=== PATIENT | female | born 1985 | race Caucasian/White ===

== ENCOUNTER 2016-12-30 02:03 | Emergency (ER) | payer OTHER ==
[~2016-12-30] VITALS: Ht 162.5 cm; Wt 65.8 kg
[~2016-12-30 02:03] MED LIST: 'PARAFON FORTE500 M1 PO; ACCUNEB 0.1.25 MG/3 INH; ALBUTEROL2.5 MG/0.5 INH; ANAPROX DS550 MG PO; ATIVAN1 MG PO; BUSPAR5 MG PO; CLARITIN10 MG PO; DELTASONE20 MG PO; DOXYCYCLINE100 M2 PO; DULERA100 INH; DUONEB 3 MG/3 ML3 M1 INH; FLONASE ALLERG9.9 ML NAS; HYDROCODONE BIT1 T11 PO; HYDROXYZINE PAM25 M1 PO; HYDROXYZINE PAM50 MG PO; KROGER NIC21 MG/24 H T; LEVAQUIN750 M1 PO; LEVAQUIN750 MG PO; LEVOFLOXACIN500 MG PO; MEDROL DOSEPAK4 MG PO; MOTRIN800 MG PO; MUSCLE RELAXANT; NAPROSYN500 MG PO; NICOTINE T21 MG/24 H T; ONDANSETRON HYDR4 M1 PO; OPANA ER30 MG PO; OXYCODONE30 MG PO; PERCOCET 325 MG1 TA2 PO; PREDNISONE10 MG PO; PREDNISONE20 MG PO; PREDNISONE50 MG PO; PROVENTIL0.09 MG/AC IH; RESTORIL30 MG PO; ROBAXIN750 MG PO; ROBITUSSIN AC 110 ML PO; ROBITUSSIN DM 105 ML PO; ROBITUSSIN-AC 160 ML PO; ROBITUSSIN5 ML PO; SINEMET 25-100M1 TAB PO; SINGULAIR10 MG PO; SUDAFED60 MG PO; THERA1 TAB PO; VENTOLIN 02.5 MG/3 M INH; VIBRAMYCIN100 MG PO; VICODIN 5/500 505 MG PO; VITAMIN B-11 TAB PO; VIVITROL380 MG IM; Vicodin 5/500 505 MG PO; ZITHROMAX Z PA250 MG PO; ZITHROMAX250 MG PO; ZOLOFT100 MG PO; ZYRTEC10 M3 PO
[2016-12-30] MEDS ORDERED: BUSPAR5 MG PO (02:10)
[2016-12-30] MEDS ORDERED: ZOLOFT100 MG PO (02:10)
[2016-12-30] MEDS ORDERED: PENICILLIN VK500 MG PO (02:22)
[2016-12-30] MEDS ORDERED: NORCO 5-325 TA1 EACH PO (02:22)
== END 2016-12-30 02:50 | disposition home or self-care (01) ==
LOC: ED 02:03
DX: K04.7 Periapical abscess without sinus (principal); H92.01 Otalgia, right ear; K13.79 Other lesions of oral mucosa; J45.909 Unspecified asthma, uncomplicated; F17.200 Nicotine dependence, unspecified, uncomplicated; Z79.899 Other long term (current) drug therapy

== ENCOUNTER 2017-03-03 13:31 | Emergency (ER) | payer OTHER ==
[~2017-03-03] VITALS: Ht 162.5 cm; Wt 65.8 kg
[~2017-03-03 13:31] MED LIST changes: +NORCO 5-325 TA1 EACH PO; +PENICILLIN VK500 MG PO
[2017-03-03 14:09] LABS: BILIRUBIN NEGATIVE (NEGATIVE); BLOOD 2+ (NEGATIVE); CLARITY SL CLOUDY (CLEAR); COLOR YELLOW (YELLOW); GLUCOSE NEGATIVE (NEGATIVE); KETONE NEGATIVE (NEGATIVE); LEUKO ESTERASE 2+ (NEGATIVE); NITRITE POSITIVE (NEGATIVE); PH 6.5 (5.0-9.0); UROBILINOGEN 0.2 E.U./dl (0.2-1.0)
[2017-03-03 14:20] LABS: HEMATOCRIT 41.8 % (37.0-47.0); HEMOGLOBIN 13.5 g/dl (12.0-16.0); MEAN CORPUSCULAR HGB 28.4 pg (27.0-31.0); MEAN CORPUSCULAR HGB CONC 32.3 g/dl (33.0-37.0); MEAN PLATELET VOLUME 9.7 fl (9.6-12.3); PLATELET COUNT AUTOMATED 247 10*3/uL (130-400); RED BLOOD COUNT 4.75 10*6/uL (4.10-5.10); WHITE BLOOD COUNT 14.9 10*3/uL (4.8-10.8)
[2017-03-03 14:24] LABS: BACTERIA 3+; EPITHELIAL CELLS 16-20; WBC 21-30 wbc/hpf (0-5)
[2017-03-03 14:36] LABS: ALBUMIN 3.4 gm/dl (3.1-4.5); ALKALINE PHOSPHATASE 50 U/L (45-117); BUN 11 mg/dl (7-24); CHLORIDE 107 mmol/L (98-107); CREATININE 0.87 mg/dL (0.55-1.02); LIPASE 88 U/L (73-393); POTASSIUM 3.9 mmol/L (3.5-5.1); SGOT/AST 10 IU/L (3-35); SGPT/ALT 12 U/L (12-78); SODIUM 139 mmol/L (136-145); TOTAL PROTEIN 7.4 gm/dL (6.4-8.2)
[2017-03-03 14:57] LABS: BASOPHILS 1 % (0-1); PLATELET SUFFICIENCY NORMAL (NORMAL); TOTAL CELLS COUNTED 100 #CELLS
[2017-03-03] MEDS ORDERED: CIPRO500 MG PO (15:24)
[2017-03-03] MEDS ORDERED: Zofran4 MG PO (15:24)
== END 2017-03-03 16:34 | disposition home or self-care (01) ==
LOC: ED 13:31
PROVIDERS: Emergency Medicine
DX: N12 Tubulo-interstitial nephritis, not specified as acute or chronic (principal); R51 Headache; J45.909 Unspecified asthma, uncomplicated; F17.200 Nicotine dependence, unspecified, uncomplicated; Z79.899 Other long term (current) drug therapy

== ENCOUNTER 2017-04-09 17:27 | Emergency (ER) | payer OTHER ==
[~2017-04-09] VITALS: Ht 162.5 cm; Wt 65.8 kg
[~2017-04-09 17:27] MED LIST changes: +CIPRO500 MG PO; +Zofran4 MG PO
[2017-04-09] MEDS ORDERED: ROBITUSSIN DM 105 ML PO (19:31)
[2017-04-09] MEDS ORDERED: PREDNISONE20 M1 PO ×2 (19:31→19:32)
== END 2017-04-09 19:36 | disposition home or self-care (01) ==
LOC: ED 17:27
DX: J45.901 Unspecified asthma with (acute) exacerbation (principal); F17.200 Nicotine dependence, unspecified, uncomplicated; Z87.01 Personal history of pneumonia (recurrent); Z79.899 Other long term (current) drug therapy

== ENCOUNTER 2018-06-12 19:03 | Emergency (ER) | payer BC ==
[~2018-06-12] VITALS: Ht 162.5 cm; Wt 62.6 kg
[~2018-06-12 19:03] MED LIST changes: +LEVAQUIN500 M2 PO; +NICOTINE PATCH1 EAC2 TD; +PREDNISONE20 M1 PO
[2018-06-12 19:30] LABS: BILIRUBIN NEGATIVE (NEGATIVE); BLOOD TRACE-LYSED (NEGATIVE); CLARITY CLEAR (CLEAR); COLOR YELLOW (YELLOW); GLUCOSE NEGATIVE (NEGATIVE); KETONE NEGATIVE (NEGATIVE); LEUKO ESTERASE NEGATIVE (NEGATIVE); NITRITE NEGATIVE (NEGATIVE); SPECIFIC GRAVITY 1.015 (1.005-1.030); UROBILINOGEN 0.2 E.U./dl (0.2-1.0)
[2018-06-12 19:50] LABS: BASO # 0.1 10*3/uL (0.0-0.1); BASO % 0.5 % (0.0-1.0); EOS # 0.7 10*3/uL (0.0-0.4); EOS % 4.6 % (1.0-4.0); HEMATOCRIT 38.9 % (37.0-47.0); HEMOGLOBIN 12.9 g/dl (12.0-16.0); LYMPH # 3.9 10*3/uL (1.3-4.4); LYMPH % 27.4 % (27.0-41.0); MEAN CELL VOLUME 88.8 fl (81.0-99.0); MEAN CORPUSCULAR HGB 29.5 pg (27.0-31.0); MEAN CORPUSCULAR HGB CONC 33.2 g/dl (33.0-37.0); MEAN PLATELET VOLUME 9.6 fl (9.6-12.3); MONO # 1.1 10*3/uL (0.1-1.0); MONO % 7.4 % (3.0-9.0); NEUT # 8.5 10*3/uL (2.3-7.9); NEUT % 59.8 % (47.0-73.0); PLATELET COUNT AUTOMATED 279 10*3/uL (130-400); RED BLOOD COUNT 4.38 10*6/uL (4.10-5.10); RED CELL DISTRI WIDTH 13.2 % (0-14.5); WHITE BLOOD COUNT 14.2 10*3/uL (4.8-10.8)
[2018-06-12 19:51] LABS: BACTERIA TRACE; RBC 0-2 rbc/hpf (0-2); WBC 0-2 wbc/hpf (0-5)
[2018-06-12 20:04] LABS: ALBUMIN 3.5 gm/dl (3.1-4.5); ALKALINE PHOSPHATASE 40 U/L (45-117); BUN 12 mg/dl (7-24); CHLORIDE 109 mmol/L (98-107); CREATININE 0.65 mg/dL (0.55-1.02); LIPASE 122 U/L (73-393); POTASSIUM 3.7 mmol/L (3.5-5.1); SGOT/AST 11 IU/L (3-35); SGPT/ALT 16 U/L (12-78); SODIUM 141 mmol/L (136-145)
== END 2018-06-12 21:47 | disposition home or self-care (01) ==
LOC: ED 19:03
PROVIDERS: Nurse Practitioner Family
DX: O26.891 Other specified pregnancy related conditions, first trimester (principal); R10.32 Left lower quadrant pain; J45.909 Unspecified asthma, uncomplicated; Z79.899 Other long term (current) drug therapy; Z87.891 Personal history of nicotine dependence; Z3A.01 Less than 8 weeks gestation of pregnancy

== ENCOUNTER 2018-09-21 17:06 | Emergency (ER) | payer BC ==
[~2018-09-21] VITALS: Ht 162.5 cm; Wt 61.7 kg
[2018-09-21 17:38] LABS: BASO % 0.3 % (0.0-1.0); EOS # 0.4 10*3/uL (0.0-0.4); EOS % 2.3 % (1.0-4.0); HEMATOCRIT 34.7 % (37.0-47.0); HEMOGLOBIN 11.7 g/dl (12.0-16.0); LYMPH # 2.9 10*3/uL (1.3-4.4); MEAN CELL VOLUME 91.1 fl (81.0-99.0); MEAN CORPUSCULAR HGB 30.7 pg (27.0-31.0); MEAN CORPUSCULAR HGB CONC 33.7 g/dl (33.0-37.0); MEAN PLATELET VOLUME 9.9 fl (9.6-12.3); MONO # 1.1 10*3/uL (0.1-1.0); MONO % 6.8 % (3.0-9.0); NEUT # 11.4 10*3/uL (2.3-7.9); NEUT % 71.2 % (47.0-73.0); PLATELET COUNT AUTOMATED 279 10*3/uL (130-400); RED BLOOD COUNT 3.81 10*6/uL (4.10-5.10)
[2018-09-21 17:53] LABS: ABG HCO3 18.5 mmol/l (22-26); ABG O2 SATURATION 98.3 % (95-97); ARTERIAL BLOOD GAS PCO2 26.2 mmHg (35-45); ARTERIAL BLOOD GAS PH 7.46 (7.35-7.45); ARTERIAL BLOOD GAS PO2 82.1 mmHg (80-90)
[2018-09-21 18:07] LABS: ALBUMIN 3.1 gm/dl (3.1-4.5); ALKALINE PHOSPHATASE 47 U/L (45-117); BUN 7 mg/dl (7-24); CHLORIDE 109 mmol/L (98-107); CREATININE 0.76 mg/dL (0.55-1.02); POTASSIUM 3.5 mmol/L (3.5-5.1); SGOT/AST 10 IU/L (3-35); SGPT/ALT 27 U/L (12-78); SODIUM 140 mmol/L (136-145); TOTAL PROTEIN 7.1 gm/dL (6.4-8.2)
[2018-09-21] MEDS ORDERED: DELTASONE20 M1 PO (18:30)
[2018-09-21] MEDS ORDERED: PROVENTIL HFA6.7 GM INH (18:30)
[2018-09-21] MEDS ORDERED: Ipratropium Brom3 ML INH (18:30)
== END 2018-09-21 18:45 | disposition home or self-care (01) ==
LOC: ED 17:06
PROVIDERS: Emergency Medicine
DX: O99.512 Diseases of the respiratory system complicating pregnancy, second trimester (principal); J45.901 Unspecified asthma with (acute) exacerbation; O99.332 Smoking (tobacco) complicating pregnancy, second trimester; Z79.2 Long term (current) use of antibiotics; Z79.899 Other long term (current) drug therapy; Z3A.18 18 weeks gestation of pregnancy

== ENCOUNTER 2019-04-09 18:22 | Emergency (ER) | payer BC ==
[~2019-04-09] VITALS: Ht 162.5 cm; Wt 68.5 kg
[~2019-04-09 18:22] MED LIST changes: +DELTASONE20 M1 PO; +Ipratropium Brom3 ML INH; +PROVENTIL HFA6.7 GM INH
[2019-04-09 18:52] LABS: BASO # 0.1 10*3/uL (0.0-0.1); BASO % 0.5 % (0.0-1.0); EOS # 0.3 10*3/uL (0.0-0.4); EOS % 2.5 % (1.0-4.0); HEMATOCRIT 39.1 % (37.0-47.0); LYMPH # 3.3 10*3/uL (1.3-4.4); LYMPH % 25.3 % (27.0-41.0); MEAN CELL VOLUME 89.5 fl (81.0-99.0); MEAN CORPUSCULAR HGB 29.7 pg (27.0-31.0); MEAN CORPUSCULAR HGB CONC 33.2 g/dl (33.0-37.0); MEAN PLATELET VOLUME 10.3 fl (9.6-12.3); MONO # 0.8 10*3/uL (0.1-1.0); MONO % 6.3 % (3.0-9.0); NEUT # 8.5 10*3/uL (2.3-7.9); NEUT % 64.9 % (47.0-73.0); PLATELET COUNT AUTOMATED 240 10*3/uL (130-400); RED BLOOD COUNT 4.37 10*6/uL (4.10-5.10); WHITE BLOOD COUNT 13.1 10*3/uL (4.8-10.8)
[2019-04-09 19:08] LABS: ACT PARTIAL THROMBO TIME 28.4 SECONDS (20.0-32.1); INTERNATIONAL NORM RATIO 0.9 (2.0-3.5)
[2019-04-09 19:09] LABS: ALBUMIN 3.5 gm/dl (3.1-4.5); ALKALINE PHOSPHATASE 62 U/L (45-117); BUN 13 mg/dl (7-24); CHLORIDE 110 mmol/L (98-107); CREATININE 0.77 mg/dL (0.55-1.02); POTASSIUM 3.5 mmol/L (3.5-5.1); SGOT/AST 13 IU/L (3-35); SGPT/ALT 31 U/L (12-78); SODIUM 139 mmol/L (136-145)
[2019-04-09 19:16] LABS: TROPONIN I < 0.015 ng/ml (<0.045)
[2019-04-09] MEDS ORDERED: ZITHROMAX250 MG PO (20:27)
[2019-04-09] MEDS ORDERED: PREDNISONE20 M1 PO (20:27)
== END 2019-04-09 20:53 | disposition home or self-care (01) ==
LOC: ED 18:22
PROVIDERS: Emergency Medicine
DX: J45.901 Unspecified asthma with (acute) exacerbation (principal); R19.7 Diarrhea, unspecified; F17.200 Nicotine dependence, unspecified, uncomplicated

== ENCOUNTER 2019-04-11 16:35 | Inpatient (IN) | payer BC ==
[~2019-04-11] VITALS: Ht 162.6 cm; Wt 70.4 kg
[2019-04-11 16:36] VITALS: BP 125/80
[2019-04-11 17:08] LABS: BASO % 0.2 % (0.0-1.0); EOS # 0.3 10*3/uL (0.0-0.4); EOS % 1.2 % (1.0-4.0); HEMATOCRIT 39.6 % (37.0-47.0); HEMOGLOBIN 12.8 g/dl (12.0-16.0); LYMPH # 1.6 10*3/uL (1.3-4.4); LYMPH % 8.1 % (27.0-41.0); MEAN CELL VOLUME 91.5 fl (81.0-99.0); MEAN CORPUSCULAR HGB 29.6 pg (27.0-31.0); MEAN CORPUSCULAR HGB CONC 32.3 g/dl (33.0-37.0); MEAN PLATELET VOLUME 10.5 fl (9.6-12.3); MONO # 1.5 10*3/uL (0.1-1.0); MONO % 7.7 % (3.0-9.0); NEUT # 16.3 10*3/uL (2.3-7.9); NEUT % 81.6 % (47.0-73.0); PLATELET COUNT AUTOMATED 255 10*3/uL (130-400); RED BLOOD COUNT 4.33 10*6/uL (4.10-5.10); RED CELL DISTRI WIDTH 13.3 % (0-14.5)
[2019-04-11 17:18] LABS: ACT PARTIAL THROMBO TIME 24.5 SECONDS (20.0-32.1); INTERNATIONAL NORM RATIO 0.9 (2.0-3.5)
[2019-04-11 17:23] LABS: ALBUMIN 3.4 gm/dl (3.1-4.5); ALKALINE PHOSPHATASE 66 U/L (45-117); BUN 11 mg/dl (7-24); CHLORIDE 112 mmol/L (98-107); CREATININE 0.65 mg/dL (0.55-1.02); LIPASE 76 U/L (73-393); POTASSIUM 3.7 mmol/L (3.5-5.1); SGOT/AST 15 IU/L (3-35); SGPT/ALT 37 U/L (12-78); SODIUM 141 mmol/L (136-145); TOTAL PROTEIN 7.2 gm/dL (6.4-8.2)
[2019-04-11 17:24] LABS: TROPONIN I < 0.015 ng/ml (<0.045)
[2019-04-11 17:52] LABS: BILIRUBIN NEGATIVE (NEGATIVE); BLOOD TRACE-INTACT (NEGATIVE); CLARITY CLEAR (CLEAR); COLOR YELLOW (YELLOW); GLUCOSE NEGATIVE (NEGATIVE); KETONE NEGATIVE (NEGATIVE); LEUKO ESTERASE NEGATIVE (NEGATIVE); NITRITE NEGATIVE (NEGATIVE); PH 6.5 (5.0-9.0); UROBILINOGEN 0.2 E.U./dl (0.2-1.0)
[2019-04-11 18:00] LABS: BACTERIA 1+; EPITHELIAL CELLS 16-20; WBC 0-2 wbc/hpf (0-5)
[2019-04-11 18:15] VITALS: BP 118/78
--- NOTE | 2019-04-11 18:16 | NUR ---
PT STATES SHE IS FEELING MUCH BETTER AFTER HER , MEDICATION AND BREATHING TX, POX 97% 2L NC.
--- NOTE | 2019-04-11 19:23 | NUR ---
PT NOW TO CT.
[2019-04-11 19:48] VITALS: BP 136/84
[2019-04-11 22:31] VITALS: BP 120/69
[2019-04-11 22:51] VITALS: BP 119/57
--- NOTE | 2019-04-11 22:51 | NUR ---
A 33, admitted to 4E, under the services of JENNIFER Amaya DO with a diagnosis of DYSPNEA, SEPSIS, PNEUMONIA. Chief complaint is ASTHMA. Patient arrived via stretcher from ER. Initial assessment completed. Vital signs taken and recorded. Dr. Gonzales notified of admission to the unit. See assessment for past medical history, medications and allergies. Patient oriented to unit. [facility] 4E Clothing/patient valuable form completed.
[2019-04-11] MEDS ORDERED: SYMB80 INH (23:12)
[2019-04-11] MEDS ORDERED: ZOLOFT100 MG PO (23:15)
--- NOTE | 2019-04-11 23:30 | NUR ---
PATIENT GIVEN PRN TYLENOL AND TESSALON PEARLS FOR DISCOMFORT & COUGH. WILL MONITOR FOR EFFECTIVENESS.
--- NOTE | 2019-04-11 23:36 | NUR ---
NOTIFIED DR. KAM PATIENT ARRIVED ON FLOOR AND THAT THE MEDICATION LIST WAS UP TO DATE PER PATIENT.
--- NOTE | 2019-04-12 00:14 | NUR ---
PRN TYLENOL AND TESSALON PEARLS EFFECTIVE PER PATIENT.
--- NOTE | 2019-04-12 01:13 | NUR ---
24 HR chart check completed.
--- NOTE | 2019-04-12 06:04 | NUR ---
PT INSTRUCTED ON FV USE. PT DISPLAYS PROPER USE/TECHNIQUE WITH DEVICE. APPEARS TO BE COMPLIANT. NO DISTRESS OR SOB NOTED AT THIS TIME.
[2019-04-12 06:10] LABS: HEMATOCRIT 40.3 % (37.0-47.0); HEMOGLOBIN 12.9 g/dl (12.0-16.0); MEAN CELL VOLUME 91.2 fl (81.0-99.0); MEAN CORPUSCULAR HGB 29.2 pg (27.0-31.0); MEAN PLATELET VOLUME 10.5 fl (9.6-12.3); PLATELET COUNT AUTOMATED 250 10*3/uL (130-400); RED BLOOD COUNT 4.42 10*6/uL (4.10-5.10); RED CELL DISTRI WIDTH 13.2 % (0-14.5); WHITE BLOOD COUNT 17.8 10*3/uL (4.8-10.8)
[2019-04-12 06:25] LABS: BUN 9 mg/dl (7-24); CHLORIDE 110 mmol/L (98-107); CHOLESTEROL 279 mg/dL (<200); HDL CHOLESTEROL 42 mg/dl (40-60); LDL CHOLESTEROL 198 mg/dL (9-159); PHOSPHOROUS 3.8 mg/dL (2.5-4.9); SODIUM 141 mmol/L (136-145); TRIGLYCERIDES 196 mg/dl (<150); VLDL CHOLESTEROL 39 mg/dL (6-40)
[2019-04-12 06:40] LABS: PLATELET SUFFICIENCY NORMAL (NORMAL); TOTAL CELLS COUNTED 100 #CELLS
[2019-04-12 07:31] LABS: VITAMIN D, 25-HYDROXY 12.1 ng/mL (30-100)
[2019-04-12 08:00] VITALS: BP 119/82
--- NOTE | 2019-04-12 09:40 | NUR ---
DR. AYON CALLED WANTS PULSE OX ON PT. PT RESTING IN BED. PULSE OX 92-93% DROPPED TO 89% FOR A SECOND AND BACK UP. HAD HER TAKE SOME DEEP BREATHS. CALLED DR. SAL TO REPORT PULSE OX. HE WANTS HER TO AMBULATE AND CALL BACK.
[2019-04-12] MEDS ORDERED: MUCINEX1200 M1 PO (09:42)
[2019-04-12] MEDS ORDERED: LEVAQUIN500 M2 PO (09:42)
[2019-04-12] MEDS ORDERED: PREDNISONE10 MG PO (09:42)
--- NOTE | 2019-04-12 09:45 | NUR ---
CALLED DR. SAL AWARE PT WALKED 10-12 FEET TO DOOR AND BACK TO BED. SHORT OF BREATHE WITH MINIMAL EXERTION. PULSE OX WHEN SAT DOWN 87-88% ON ROOM AIR. OXYGEN APPLIED ON 2 LITERS, UP TO 92-93%. THEY WILL COME UP TO SEE PT.
[2019-04-12 12:00] VITALS: BP 114/71
--- NOTE | 2019-04-12 15:00 | NUR ---
TOLERATED ROUTINE MED WITH NO PROBLEM. PT RECEIVING BREATHING TX. CALL LIGHT IN REACH.
[2019-04-12 16:00] VITALS: BP 133/79
--- NOTE | 2019-04-12 16:57 | NUR ---
PT AMBULATORY OFF THE FLOOR WITH VISITOR. HEPLOCK REMOVED 2X2 APPLIED. Discharge instructions reviewed with patient/family. Patient receptive and verbalizes understanding. Follow-up care arranged. Written instructions given to patient/family. JORGE COFFMAN
== END 2019-04-12 16:57 | disposition home or self-care (01) | DRG 871 ==
LOC: ED 16:35 → EDHOLD 21:38 → 4E 22:09
PROVIDERS: Internal Medicine; Nurse Practitioner Family; ADMIT Internal Medicine
DX: A41.9 Sepsis, unspecified organism (principal); J18.1 Lobar pneumonia, unspecified organism; J96.01 Acute respiratory failure with hypoxia; J45.41 Moderate persistent asthma with (acute) exacerbation; J40 Bronchitis, not specified as acute or chronic; E87.8 Other disorders of electrolyte and fluid balance, not elsewhere classified; R73.9 Hyperglycemia, unspecified; F17.210 Nicotine dependence, cigarettes, uncomplicated; R65.20 Severe sepsis without septic shock

== ENCOUNTER → 2019-04-20 | Outpatient (CLI) | payer BC ==
[~2019-04-20] MED LIST changes: +MUCINEX1200 M1 PO; +SYMB80 INH
== END | disposition home or self-care (01) ==
LOC: RAD 16:17
DX: J18.1 Lobar pneumonia, unspecified organism (principal)

== ENCOUNTER 2019-06-11 19:54 | Emergency (ER) | payer BC ==
[~2019-06-11] VITALS: Ht 162.5 cm; Wt 72.6 kg
[2019-06-11 21:08] LABS: BASO # 0.1 10*3/uL (0.0-0.1); BASO % 0.5 % (0.0-1.0); EOS # 0.4 10*3/uL (0.0-0.4); EOS % 3.9 % (1.0-4.0); HEMATOCRIT 40.3 % (37.0-47.0); HEMOGLOBIN 13.1 g/dl (12.0-16.0); LYMPH # 2.9 10*3/uL (1.3-4.4); LYMPH % 26.8 % (27.0-41.0); MEAN CELL VOLUME 88.2 fl (81.0-99.0); MEAN CORPUSCULAR HGB 28.7 pg (27.0-31.0); MEAN CORPUSCULAR HGB CONC 32.5 g/dl (33.0-37.0); MEAN PLATELET VOLUME 10.1 fl (9.6-12.3); MONO % 9.2 % (3.0-9.0); NEUT # 6.4 10*3/uL (2.3-7.9); NEUT % 59.1 % (47.0-73.0); PLATELET COUNT AUTOMATED 317 10*3/uL (130-400); RED BLOOD COUNT 4.57 10*6/uL (4.10-5.10); RED CELL DISTRI WIDTH 13.7 % (0-14.5); WHITE BLOOD COUNT 10.9 10*3/uL (4.8-10.8)
[2019-06-11 21:17] LABS: BILIRUBIN NEGATIVE (NEGATIVE); BLOOD NEGATIVE (NEGATIVE); CLARITY CLEAR (CLEAR); COLOR YELLOW (YELLOW); GLUCOSE NEGATIVE (NEGATIVE); KETONE NEGATIVE (NEGATIVE); LEUKO ESTERASE NEGATIVE (NEGATIVE); NITRITE NEGATIVE (NEGATIVE); SPECIFIC GRAVITY 1.015 (1.005-1.030); UROBILINOGEN 0.2 E.U./dl (0.2-1.0)
[2019-06-11 21:23] LABS: ALBUMIN 3.4 gm/dl (3.1-4.5); ALKALINE PHOSPHATASE 124 U/L (45-117); BUN 9 mg/dl (7-24); CHLORIDE 112 mmol/L (98-107); CREATININE 0.73 mg/dL (0.55-1.02); POTASSIUM 3.9 mmol/L (3.5-5.1); SGOT/AST 265 IU/L (3-35); SGPT/ALT 258 U/L (12-78); SODIUM 142 mmol/L (136-145); TOTAL PROTEIN 7.1 gm/dL (6.4-8.2)
[2019-06-11 21:27] LABS: BACTERIA TRACE; EPITHELIAL CELLS 0-2
[2019-06-11 21:28] LABS: LIPASE 1528 U/L (73-393)
== END 2019-06-11 23:06 | disposition left against medical advice (07) ==
LOC: ED 19:54
PROVIDERS: Emergency Medicine
DX: K85.90 Acute pancreatitis without necrosis or infection, unspecified (principal); R74.0 Nonspecific elevation of levels of transaminase and lactic acid dehydrogenase [LDH]; J45.909 Unspecified asthma, uncomplicated; F17.200 Nicotine dependence, unspecified, uncomplicated; Z79.899 Other long term (current) drug therapy

== ENCOUNTER → 2019-11-02 | Outpatient (CLI) | payer BC | END | disposition home or self-care (01) | LOC: COVID19 10:49 | DX: B34.9 Viral infection, unspecified (principal); Z03.818 Encounter for observation for suspected exposure to other biological agents ruled out; Z78.9 Other specified health status; Z79.899 Other long term (current) drug therapy ==

== ENCOUNTER → 2019-11-02 | Outpatient (CLI) | payer BC | END | disposition home or self-care (01) | LOC: RAD 11:25 | DX: J45.901 Unspecified asthma with (acute) exacerbation (principal) ==

== ENCOUNTER 2019-12-10 05:57 | Emergency (ER) | payer BC ==
[~2019-12-10] VITALS: Ht 162.5 cm; Wt 77.1 kg
[2019-12-10 06:34] LABS: BASO # 0.1 10*3/uL (0.0-0.1); BASO % 0.7 % (0.0-1.0); EOS # 0.5 10*3/uL (0.0-0.4); EOS % 4.5 % (1.0-4.0); HEMATOCRIT 43.6 % (37.0-47.0); LYMPH # 2.4 10*3/uL (1.3-4.4); LYMPH % 22.2 % (27.0-41.0); MEAN CELL VOLUME 87.7 fl (81.0-99.0); MEAN CORPUSCULAR HGB 28.4 pg (27.0-31.0); MEAN CORPUSCULAR HGB CONC 32.3 g/dl (33.0-37.0); MEAN PLATELET VOLUME 9.5 fl (9.6-12.3); MONO # 0.7 10*3/uL (0.1-1.0); MONO % 6.8 % (3.0-9.0); NEUT # 7.2 10*3/uL (2.3-7.9); NEUT % 65.3 % (47.0-73.0); PLATELET COUNT AUTOMATED 349 10*3/uL (130-400); RED BLOOD COUNT 4.97 10*6/uL (4.10-5.10); RED CELL DISTRI WIDTH 13.2 % (0-14.5)
[2019-12-10 06:48] LABS: ALBUMIN 3.7 gm/dl (3.1-4.5); ALKALINE PHOSPHATASE 55 U/L (45-117); BUN 10 mg/dl (7-24); CHLORIDE 108 mmol/L (98-107); CREATININE 0.83 mg/dL (0.55-1.02); POTASSIUM 3.9 mmol/L (3.5-5.1); SGOT/AST 11 IU/L (3-35); SGPT/ALT 21 U/L (12-78); SODIUM 138 mmol/L (136-145); TOTAL PROTEIN 7.6 gm/dL (6.4-8.2)
[2019-12-10] MEDS ORDERED: PREDNISONE20 M1 PO (08:10)
== END 2019-12-10 08:13 | disposition home or self-care (01) ==
LOC: ED 05:57
PROVIDERS: Emergency Medicine
DX: J45.901 Unspecified asthma with (acute) exacerbation (principal); F17.200 Nicotine dependence, unspecified, uncomplicated; Z79.899 Other long term (current) drug therapy

== ENCOUNTER 2020-03-01 05:52 | Emergency (ER) | payer BC ==
[~2020-03-01] VITALS: Ht 170.1 cm; Wt 83.9 kg
[2020-03-01 06:15] LABS: BASO # 0.1 10*3/uL (0.0-0.1); BASO % 0.5 % (0.0-1.0); EOS # 0.3 10*3/uL (0.0-0.4); HEMATOCRIT 43.1 % (37.0-47.0); LYMPH # 3.4 10*3/uL (1.3-4.4); LYMPH % 26.8 % (27.0-41.0); MEAN CORPUSCULAR HGB 27.5 pg (27.0-31.0); MEAN PLATELET VOLUME 9.6 fl (9.6-12.3); MONO # 0.9 10*3/uL (0.1-1.0); MONO % 6.8 % (3.0-9.0); NEUT % 63.3 % (47.0-73.0); PLATELET COUNT AUTOMATED 316 10*3/uL (130-400); RED BLOOD COUNT 5.01 10*6/uL (4.10-5.10); RED CELL DISTRI WIDTH 13.2 % (0-14.5); WHITE BLOOD COUNT 12.6 10*3/uL (4.8-10.8)
[2020-03-01 06:31] LABS: ALBUMIN 3.5 gm/dl (3.1-4.5); ALKALINE PHOSPHATASE 51 U/L (45-117); BUN 10 mg/dl (7-24); CHLORIDE 111 mmol/L (98-107); CREATININE 0.78 mg/dL (0.55-1.02); POTASSIUM 3.6 mmol/L (3.5-5.1); SGOT/AST 12 IU/L (3-35); SGPT/ALT 20 U/L (12-78); SODIUM 139 mmol/L (136-145); TOTAL PROTEIN 7.4 gm/dL (6.4-8.2)
[2020-03-01] MEDS ORDERED: PROVENTIL HFA6.7 GM INH (07:15)
== END 2020-03-01 07:35 | disposition home or self-care (01) ==
LOC: ED 05:52
PROVIDERS: Emergency Medicine
DX: J45.909 Unspecified asthma, uncomplicated (principal); F32.9 Major depressive disorder, single episode, unspecified; F41.9 Anxiety disorder, unspecified; F17.200 Nicotine dependence, unspecified, uncomplicated; Z79.899 Other long term (current) drug therapy

== ENCOUNTER 2020-03-30 20:00 | Emergency (ER) | payer BC ==
[~2020-03-30] VITALS: Ht 162.5 cm; Wt 77.1 kg
[2020-03-30] MEDS ORDERED: PREDNISONE20 M1 PO (22:10)
== END 2020-03-30 22:19 | disposition home or self-care (01) ==
LOC: ED 20:00
DX: J45.901 Unspecified asthma with (acute) exacerbation (principal); Z79.899 Other long term (current) drug therapy

== ENCOUNTER → 2020-04-06 | Outpatient (CLI) | payer BC | END | disposition home or self-care (01) | LOC: COVID19 00:22 | PROVIDERS: ATTEND Nurse Practitioner Primary Care | DX: Z20.828 Contact with and (suspected) exposure to other viral communicable diseases (principal); J45.901 Unspecified asthma with (acute) exacerbation; J45.41 Moderate persistent asthma with (acute) exacerbation ==

== ENCOUNTER 2021-02-10 02:18 | Emergency (ER) | payer BC ==
[2021-02-10 02:42] LABS: BASO # 0.1 10*3/uL (0.0-0.1); BASO % 0.5 % (0.0-1.0); EOS # 0.4 10*3/uL (0.0-0.4); EOS % 2.9 % (1.0-4.0); HEMATOCRIT 44.4 % (37.0-47.0); LYMPH # 4.1 10*3/uL (1.3-4.4); LYMPH % 31.1 % (27.0-41.0); MEAN CORPUSCULAR HGB 27.9 pg (27.0-31.0); MEAN CORPUSCULAR HGB CONC 32.4 g/dl (33.0-37.0); MONO # 0.8 10*3/uL (0.1-1.0); NEUT # 7.8 10*3/uL (2.3-7.9); PLATELET COUNT AUTOMATED 334 10*3/uL (130-400); RED BLOOD COUNT 5.16 10*6/uL (4.10-5.10); RED CELL DISTRI WIDTH 13.1 % (0-14.5); WHITE BLOOD COUNT 13.2 10*3/uL (4.8-10.8)
[2021-02-10 02:56] LABS: ALBUMIN 3.7 gm/dl (3.1-4.5); ALKALINE PHOSPHATASE 62 U/L (45-117); BUN 9 mg/dl (7-24); CHLORIDE 111 mmol/L (98-107); CREATININE 0.76 mg/dL (0.55-1.02); POTASSIUM 3.6 mmol/L (3.5-5.1); SGOT/AST 10 IU/L (3-35); SGPT/ALT 19 U/L (12-78); SODIUM 142 mmol/L (136-145); TOTAL PROTEIN 7.7 gm/dL (6.4-8.2)
[2021-02-10] MEDS ORDERED: PREDNISONE10 M1 PO (05:28)
[2021-02-10] MEDS ORDERED: TESSALON PERLE100 MG PO (05:28)
[2021-02-10] MEDS ORDERED: AVPAK AZITHROM250 M1 PO (05:28)
== END 2021-02-10 05:40 | disposition home or self-care (01) ==
LOC: ED 02:18
PROVIDERS: Emergency Medicine
DX: J45.901 Unspecified asthma with (acute) exacerbation (principal); Z79.899 Other long term (current) drug therapy

== ENCOUNTER 2023-12-05 21:09 | Emergency (ER) | payer BC ==
[~2023-12-05] VITALS: Ht 162.5 cm; Wt 82.6 kg
[~2023-12-05 21:09] MED LIST changes: +AVPAK AZITHROM250 M1 PO; +PREDNISONE10 M1 PO; +TESSALON PERLE100 MG PO
[2023-12-05] MEDS ORDERED: JUNEL FE 1 MG-1 EACH PO (21:31)
[2023-12-05] MEDS ORDERED: ANORO ELLIPTA1 EACH INH (21:31)
[2023-12-05] MEDS ORDERED: ESCITALOPRAM OX10 MG PO (21:32)
[2023-12-05] MEDS ORDERED: ROSUVASTATIN CA10 MG PO (21:33)
[2023-12-05] MEDS ORDERED: Dexamethasone Sodium Phospha 20 MG/5 ML VIAL IM ONE (21:40)
[2023-12-05] MEDS ORDERED: diphenhydrAMINE hydrochloride 50 MG/ML VIAL IM ONE (21:40)
[2023-12-05] MEDS ORDERED: Tdap Vaccine 0.5 ML SYR (Adult Vaccine) IM ONE (21:40)
[2023-12-05] MEDS ORDERED: CEPHALEXIN500 M1 PO (21:43)
[2023-12-05] MEDS ORDERED: PREDNISONE50 MG PO (21:43)
[2023-12-05] MEDS ORDERED: EPIPEN 2-P0.3 MG/0.3 IJ (21:46)
== END 2023-12-05 21:49 | disposition home or self-care (01) ==
LOC: ED 21:09
DX: T63.461A Toxic effect of venom of wasps, accidental (unintentional), initial encounter (principal); F32.A Depression, unspecified; F41.9 Anxiety disorder, unspecified; J45.909 Unspecified asthma, uncomplicated; F17.200 Nicotine dependence, unspecified, uncomplicated; Y92.89 Other specified places as the place of occurrence of the external cause